=== PATIENT | male | born 1980 | race Caucasian/White ===

== ENCOUNTER → 2018-08-18 13:57 | Outpatient (CLI) | payer OTHER, SELFPAY ==
[2018-08-18 14:07] LABS: Basophils % 0.6 % (0.1-2.0); Eosinophils # 0.2 K/mm3 (0.0-0.4); Eosinophils % 3.9 % (0.1-12.0); Hematocrit 43.1 % (42.0-52.0); Hemoglobin 14.6 g/dL (14.1-18.0); Lymphocytes # 1.7 K/mm3 (0.7-4.5); Lymphocytes % 27.6 % (10-50); Mean Corpuscular Hemoglobin 30.8 pg (27.0-31.2); Mean Corpuscular Volume 90.7 fl (80-94); Mean Platelet Volume 7.9 fl (7.4-10.4); Monocytes # 0.3 K/mm3 (0.1-1.0); Monocytes % 5.6 % (1.7-9.3); Neutrophils # 3.9 K/mm3 (1.8-7.8); Neutrophils % 62.3 % (37.0-80.0); Platelet Count 232 K/mm3 (142-424); Red Blood Count 4.75 M/mm3 (4.60-6.20); Red Cell Distribution Width 13.3 % (11.5-17.5); White Blood Count 6.2 K/mm3 (4.8-10.8)
[2018-08-18 16:32] LABS: Alanine Aminotransferase 29 U/L (12-78); Albumin/Globulin Ratio 1.4 (1.1-1.8); Alkaline Phosphatase 73 U/L (46-116); Anion Gap 11.4 mEq/L (5-15); Aspartate Amino Transferase 8 U/L (15-37); Bilirubin,Total 0.4 mg/dL (0.2-1.0); Blood Urea Nitrogen 10 mg/dL (7-18); Calcium 8.7 mg/dL (8.5-10.1); Carbon Dioxide 29 mmol/L (21.0-32.0); Chloride 102 mmol/L (98-107); Chol/HDL Ratio 2.9 (1-3.5); Cholesterol 164 mg/dL (140-200); Creatinine,Serum 0.77 mg/dL (0.70-1.30); Estimated Glomerular Filt Rate 113 ml/min (>60); GFR (African American) 137 ML/MIN (>60); Globulin 2.8 gm/dl (1.3-3.2); Glucose 96 mg/dL (74-106); HDL Cholesterol 56 mg/dL (27-67); LDL Cholesterol 100 mg/dL (0-130); Potassium 4.4 mmoL/L (3.5-5.1); Sodium 138 mmol/L (136-145); T4 (Thyroxine) 7.1 ug/dl (4.7-13.3); Total Protein,Serum 6.8 gm/dL (6.4-8.2); Triglycerides 42 mg/dL (30-200); VLDL Cholesterol 8 mg/dL (0-40)
[2018-08-20 13:19] LABS: Vitamin B12 344 pg/mL (232-1245); Vitamin D 25 Hydroxy 23.8 ng/mL (30.0-100.0)
== END ==
PROVIDERS: Visit Provider Physician Assistant
DX: R53.83 Other fatigue (principal); Z79.899 Other long term (current) drug therapy
CPT/HCPCS: 80053; 80061; 82607; 82652; 84436; 85025

== ENCOUNTER → 2018-09-07 20:13 | Outpatient (CLI) | payer OTHER, SELFPAY | PROVIDERS: PCP Physician Assistant; Visit Provider Physician Assistant | DX: G47.33 Obstructive sleep apnea (adult) (pediatric) (principal); G47.30 Sleep apnea, unspecified; I10 Essential (primary) hypertension; R40.0 Somnolence | CPT/HCPCS: 95810 ==

== ENCOUNTER 2020-01-04 18:34 | Observation (INO) | payer MEDICAID, SELFPAY ==
--- NOTE | 2020-01-04 18:29 | ECG_ITS ---
APPROVED REPORT Exam: Resting ECG HR:96 bpm ECG Measurements Heart Rate 96 AXES AZ 152 P 64 QRSd 86 QRS 55 QT 342 T 33 QTc 432 Conclusion Normal sinus rhythm Normal ECG Electronically signed by : Sonny Conet, 01/06/2020 13:51:06
[2020-01-04 18:35] VITALS: BP 142/98; PULSE 96; RESP 16; TEMP 36.7; O2SAT 97; BMI 31.6
[2020-01-04 18:36] VITALS: BMI 27.2
--- NOTE | 2020-01-04 18:36 | XR_ITS ---
PROCEDURE: XR CHEST 2V CLINICAL HISTORY: chest pain COMPARISON: No exams were available for comparison FINDINGS: The cardiomediastinal silhouette and pulmonary vascularity are within normal limits. The lungs are clear without infiltrates, suspicious nodules, or pleural effusions. No acute bony abnormalities. IMPRESSION: No acute findings. Dictated by: Vick Wolfe MD 01/05/2020 06:04 Vick Wolfe MD in [place] 01/05/2020 06:04
--- NOTE | 2020-01-04 18:36 | HMH.EDGENADL ---
ED Disposition Clinical Impression: Angina pectoris Disposition: Admitted as Observation Condition on Discharge: Good - Critical Care Critical Care Time: No Attestation: On , the high probability of a clinically significant, sudden or life threatening deterioration of the following system(s) required my full and direct attention, intervention and personal management. The time I documented below is in addition to time spent performing reported procedures but includes the following listed in this critical care notation. Medical Decision Making - Medical Records Medical records reviewed: Yes: I reviewed the patient's medical records. - Todd Inquiry Pt receiving controlled substance: No Vital Signs: 01/04/20 18:35 01/04/20 18:50 Temperature 98.0 F Temperature Source Oral Pulse Rate [Right Radial] 96 H 94 H Respiratory Rate 16 Blood Pressure [Right Arm] 142/98 H 148/101 H Blood Pressure Mean [Right Arm] 112 116 Blood Pressure Source [Right Arm] Automatic Cuff Automatic Cuff Blood Pressure Position [Right Arm] Sitting Sitting 02 Sat by Pulse Oximetry 97 99 Oxygen Delivery Method Room Air Room Air - Lab Data Lab results reviewed: Yes: I reviewed the patient's lab results. Lab Results 01/04/20 18:40: WBC 8.1, RBC 4.96, Hgb 15.7, Hct 45.9, MCV 92.6, MCH 31.6 H, MCHC 34.1, RDW 12.3, Plt Count 229, MPV 7.3 L, Neut % (Auto) 55.7, Lymph % (Auto) 30.3, [place] % (Auto) 6.8, Eos % (Auto) 6.2, Baso % (Auto) 1.0, Neut # (Auto) 4.5, Lymph # (Auto) 2.4, [place] # (Auto) 0.6, Eos # (Auto) 0.5 H, Baso # (Auto) 0.1 01/04/20 18:40: Sodium 139, Potassium 3.4 L, Chloride 99, Carbon Dioxide 30, Anion Gap 13.4, BUN 16, Creatinine 1.00, Estimated Creat Clear 121, Estimated GFR 83, Est GFR ( Amer) 101, Glucose 127 H, Calcium 9.4, Troponin I < 0.01 01/04/20 18:40: SARS-CoV-2 IgG Ab (Rapid) Negative, SARS-CoV-2 IgM Ab (Rapid) Negative 01/04/20 18:40: Total Bilirubin 0.3, Direct Bilirubin 0.0, Conjugated Bilirubin 0.0, Indirect Bilirubin 0.3, Unconjugated Bilirubin 0.3, AST 25, ALT 16, Alkaline Phosphatase 74, Total Protein 7.3, Albumin 4.4 Result diagrams: 01/04/20 18:40 01/04/20 18:40 Orders (Tests/Meds): ED MEDICATIONS Discontinued Medications Generic Name Dose Route Start Last Admin Trade Name Freq PRN Reason Stop Dose Admin Aspirin 324 mg 01/04/20 18:36 01/04/20 18:47 Aspirin 81mg Chewable Tablet PO 01/04/20 18:37 324 mg ONCE ONE Administration Clopidogrel Bisulfate 300 mg 01/04/20 19:26 01/04/20 19:38 Clopidogrel 300mg Tablet PO 01/04/20 19:27 300 mg ONCE ONE Administration Metoprolol Tartrate 50 mg 01/04/20 19:26 01/04/20 19:39 Metoprolol Tartrate 50mg Tablet PO 02/03/20 19:25 Not Given BID [facility] Category Date Time Status XR chest 2V Stat Exams 01/04/20 18:36 Taken Troponin I Q3H Lab 01/04/20 21:45 Ordered Troponin I Q3H Lab 01/05/20 00:45 Ordered - Radiology Data #1 Image(s): Chest Image Reviewed: Yes I reviewed the patient's radiology image Preliminary Findings: Normal/NAD - ECG Data Tracing #1 EKG interpreted by Henok Head MD: Rhythm: sinus Rate: 96 Bard: normal Ectopy: none Conduction: normal ST Segment Changes: none T Wave Changes: none Q Waves: none No evidence of acute ischemia or injury Normal electrocardiogram - Physician Consults Physician Consulted: Mikey Time: 19:23 Reason -: Cardiology Eval/Care Comment/Response: Recommends admission, Plavix 300 mg, beta-carlo (patient is already on Metoprolol - took this AM), plan on cardiac cath tomorrow Additional Consult: Timothy Time: 20:01 Reason -: Admission - KIRAN Score for Non-Stemi Age of Patient: 30-39 years old Heart Rate: 90-109 bpm Systolic Blood Pressure: 140-159 mmHg Serum Creatinine: 0.80-1.19 mg/dl CHF Killip Class: I-No CHF Other Risk Factors: None Non-Stemi Risk Score: 54 Medical Decision Narrative: Heart Pathway Score is: 4 High Risk Ge
[2020-01-04 18:50] VITALS: BP 148/101; PULSE 94; O2SAT 99
[2020-01-04 18:50] LABS: Basophils # 0.1 K/mm3 (0-0.2); Eosinophils # 0.5 K/mm3 (0.0-0.4); Eosinophils % 6.2 % (0.1-12.0); Hematocrit 45.9 % (42.0-52.0); Hemoglobin 15.7 g/dL (14.1-18.0); Lymphocytes # 2.4 K/mm3 (0.7-4.5); Lymphocytes % 30.3 % (10-50); Mean Corpuscular HGB Conc 34.1 g/dL (31.8-35.4); Mean Corpuscular Hemoglobin 31.6 pg (27.0-31.2); Mean Corpuscular Volume 92.6 fl (80-94); Mean Platelet Volume 7.3 fl (7.4-10.4); Monocytes # 0.6 K/mm3 (0.1-1.0); Monocytes % 6.8 % (1.7-9.3); Neutrophils # 4.5 K/mm3 (1.8-7.8); Neutrophils % 55.7 % (37.0-80.0); Platelet Count 229 K/mm3 (142-424); Red Blood Count 4.96 M/mm3 (4.60-6.20); Red Cell Distribution Width 12.3 % (11.5-17.5); White Blood Count 8.1 K/mm3 (4.8-10.8)
[2020-01-04 18:58] LABS: Chloride 99 mmol/L (98-107); Potassium 3.4 mmoL/L (3.5-5.1); Sodium 139 mmol/L (136-145)
[2020-01-04 19:00] LABS: Alanine Aminotransferase 16 U/L (12-78); Albumin Level 4.4 g/dl (3.5-5.0); Alkaline Phosphatase 74 U/L (38-126); Aspartate Amino Transferase 25 U/L (17-59); Bilirubin,Indirect 0.3 mg/dL (0.0-0.9); Bilirubin,Total 0.3 mg/dl (0.2-1.3); Bilirubin,Unconjugated 0.3 mg/dL (0.0-1.1); Blood Urea Nitrogen 16 mg/dl (9-20); Creatinine Clearance Estimated 121 mL/min (50-200); Estimated Glomerular Filt Rate 83 ml/min (>60); GFR (African American) 101 ML/MIN (>60); Total Protein,Serum 7.3 g/dl (6.3-8.2)
[2020-01-04 19:01] LABS: Anion Gap 13.4 mEq/L (5-15); Calcium 9.4 mg/dl (8.4-10.2); Carbon Dioxide 30 mmol/L (22.0-30.0); Glucose 127 mg/dl (74-100)
[2020-01-04 19:15] LABS: Troponin I < 0.01 ng/ml (0.00-0.034)
[2020-01-04 19:16] LABS: Coronavirus 19 IgG Antibody Negative (Negative); Coronavirus 19 IgM Antibody Negative (Negative)
--- NOTE | 2020-01-04 19:30 | PC.NURSE ---
speaking with Dr. Jensen
--- NOTE | 2020-01-04 19:47 | PC.NURSE ---
Patient assigned to 203
--- NOTE | 2020-01-04 20:22 | HMH.HP ---
*Admission Date: 01/04/20 *Chief complaint: chest pain *History of present illness: this pt presented to the ed with chest pain The patient complains of episodes of chest pain for 1 week. He describes it as bad heartburn . He says that he gets a burning sensation in his upper chest up into his neck and across his lower chest. It goes through to his back. It is associated with nausea, shortness of breath, and clamminess. It lasts anywhere from minutes to 1/2-hour. No exacerbating or alleviating factors. He says he eats Tums for it but it will only relieve it for a few minutes. Tonight his chest just feels a little bit tight but he says that his leg started tingling tonight and therefore he decided it was time to come in to get checked. He has felt extremely fatigued and tired for the past week. 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 He smokes e-cigarettes. He has hypertension. He has a family history of heart disease. He said both of his parents had heart attacks, his mother in her 50s of a heart attack, father had a heart attack in his 60s. Both grandparents had strokes. He does not have hyperlipidemia or diabetes. pt was admitted for eval and card consult [facility] History I have reviewed the patient's past medical history: Yes Medical History: Reports:: Hypertension Denies:: Diabetes Mellitus Type 1, Diabetes Mellitus Type 2 *Have you ever received a pneumonia vaccine?: No *Have you received a flu vaccine this season?: No Other Medical History: Reports: Sinus Problems Laterality Cases: Bilateral: Tonsillectomy Other Surgeries: Yes: Other Amputation: No Fractures: No - *Social History Smoking Status: Current every day smoker Tobacco Type: e-cigarettes # Packs/Day (cigarettes): 0 Alcohol Intake: never Alcohol Intake Frequency:: a few times a month Substance Use Type: denies use *Occupational Status:: other *Travel in the last 8 weeks: None Family Hx:: No significant family history Review of Systems - Review of Systems Review of systems:: pertinent systems reviewed and negative unless documented below - Constitutional Denies fever(s) - Eyes Denies blurry vision - ENT Denies dry mouth - *Cardiovascular Reports chest pain, Denies shortness of breath - *Respiratory Denies cough, Denies shortness of breath - *Gastrointestinal Denies abdominal pain - *Genitourinary Denies blood in urine - *Musculoskeletal Denies joint pain, Denies neck pain - Integumentary/Breasts Denies rash - *Neurologic Denies localized weakness, Denies tingling/numbness/burning sensations, Denies seizure-like activity - Psychiatric Denies confusion Meds Home Medications Medication Instructions Recorded Confirmed Type Cetirizine HCl 10 mg PO DAILY 01/04/20 01/04/20 History Cholecalciferol (Vitamin D3) 25 mcg PO DAILY 01/04/20 01/04/20 History [Vitamin D3 1,000 Unit Cap] Fluticasone Propionate 2 spray INTRANASAL DAILY 01/04/20 01/04/20 History Metoprolol Succinate [Kapspargo 25 mg PO DAILY 01/04/20 01/04/20 History Sprinkle] hydroCHLOROthiazide [HCTZ 25mg 25 mg PO DAILY 01/04/20 01/04/20 History tab] Allergies Allergy/AdvReac Type Severity Reaction Status Date / Time No Known Allergies Allergy Verified 09/01/19 13:40 Exam Vital signs and Labs for Last 24 Hours: Temp Pulse Resp BP Pulse Ox 98.0 F 94 H 16 148/101 H 99 01/04/20 18:35 01/04/20 18:50 01/04/20 18:35 01/04/20 18:50 01/04/20 18:50 Laboratory Results - last 24 hr 01/04/20 18:40: WBC 8.1, RBC 4.96, Hgb 15.7, Hct 45.9, MCV 92.6, MCH 31.6 H, MCHC 34.1, RDW 12.3, Plt Count 229, MPV 7.3 L, Neut % (Auto) 55.7, Lymph % (Auto) 30.3, [place] % (Auto) 6.8, Eos % (Auto) 6.2, Baso % (Auto) 1.0, Neut # (Auto) 4.5, Lymph # (Auto) 2.4, [place] # (Auto) 0.6, Eos # (Auto) 0.5 H, Baso # (Auto) 0.1 01/04/20 18:40: Sodium 139, Potassium 3.4 L, Chloride 99, Carbon Dioxide 30, Anion Gap
[2020-01-04 20:37] VITALS: BP 152/63; PULSE 109; RESP 24; TEMP 36.6; O2SAT 97
[2020-01-04 20:54] VITALS: BP 134/42; PULSE 95; RESP 14; TEMP 36.6; O2SAT 97
--- NOTE | 2020-01-04 21:02 | PC.NURSE ---
patient up to floor via wheelchair.
[2020-01-04 21:15] VITALS: PULSE 90
[2020-01-04 21:46] VITALS: BP 155/92; PULSE 97; RESP 20; TEMP 37.1; O2SAT 97; BMI 31.6
[2020-01-04 21:56] LABS: Troponin I < 0.01 ng/ml (0.00-0.034)
[2020-01-05] VITALS (22 sets, daily range): BP systolic 123–167; BP diastolic 75–100; PULSE 62–91; RESP 16–22; TEMP 36.6–36.8; O2SAT 96–100
--- NOTE | 2020-01-05 | IR_ITS ---
APPROVED REPORT Patient Location: Inpatient PROCEDURES Left heart catheterization Left ventriculogram Selective coronary angiogram INDICATION Unstable angina, Strong family history of coronary disease Informed consent was obtained prior to the procedure. COMPLICATIONS None Estimated Blood Loss: less than 10ml TECHNIQUE One percent lidocaine used to anesthetize the right anterior aspect of the wrist. The right radial artery was accessed via the Seldinger technique. A 6 [place] sheath was placed in the right radial artery. 2.5 mg of verapamil, 800 mcg of nitroglycerin, 1mg Lidocaine and 5000 U Heparin were given through the arterial sheath. The trap catheter was also used to perform left heart catheterization, left ventriculogram and selective coronary angiogram. At the end of the procedure the sheath was removed good hemostasis was achieved using Traclet band, patient was transferred to the postop holding area in stable condition. ANGIOGRAPHIC RESULTS The left main artery Normal The left anterior descending artery Normal The circumflex artery Normal The right coronary artery Dominant normal The BANKS ventriculogram reveals Normal 65% The left ventricular end-diastolic pressure 30 mmHg IMPRESSION Normal coronary arteries Normal ejection fraction Moderate to severely elevated LVEDP consistent with diastolic dysfunction PLAN 1. Treatment of moderate to severe diastolic dysfunction which is the likely etiology for patient's symptoms 2. I still recommend exploring other etiologies for patient's symptoms Electronically signed by : Miguel Jensen, 01/05/2020 12:53:04
[2020-01-05 01:19] LABS: Troponin I < 0.01 ng/ml (0.00-0.034)
--- NOTE | 2020-01-05 03:56 | PC.NURSE ---
Pt is alert and oriented x4. Pt rested well with eyes closed this shift. No c/o chest pain thus far. PERRLA. Bilateral hand melangeur operator noted equal and strong. Cap refill < 3 seconds. Bilateral lungs noted clear t/o upon auscultation. Tolerated RA well with no c/o SOA. Pt states he has sleep apnea but did not bring his CPAP machine with him tonight. states if he has to stay another night she will bring it in for him. Abdomen noted soft and non-tender upon palpation. No c/o abd pain t/o shift. Denies N/V. Amb independently in room. No edema noted. Refused TEDS. VSS. Remains safe. Call light within reach. Will continue to monitor.
--- NOTE | 2020-01-05 07:00 | CA_ITS ---
APPROVED REPORT EXAM: Comprehensive 2D, Doppler, and color-flow Echocardiogram Blow Up Operator: Bailey Burris RDCS Ht: 6 ft 1 in Wt: 250lbs BSA: 2.37 BP: 123/81 mmHg Indications: CP,DIETER,SMOKER,HTN, 2D Dimensions LVOT 2.07 cm (M/F) 1.5-2.5 M-Mode Dimensions RVDd 2.91 cm (0.9-2.6) LVDd 5.43 cm (3.5-5.7) LVDs 4.22 cm (3.5-5.7) IVSd 0.72 cm (0.6-1.1) PWd 0.81 cm (0.6-1.1) EF (Teich) 44.40% FS 22.30% EDV (Teich) 143.10 mL ESV (Teich) 79.50 mL LV Diastology E/A Ratio 1.31 Mitral Valve MV A Velocity 49.00 (40-130 cm/s) Left Ventricle Left atrium is mildly enlarged, left ventricle is normal size, there is no concentric left ventricular hypertrophy, visually estimated ejection fraction 55% with no regional wall motion abnormality, diastolic parameters are within normal range. Right Ventricle Right atrium and right ventricle are mildly enlarged with normal contractility. Aortic Valve Aortic valve is grossly normal, there is no aortic stenosis or aortic insufficiency. Mitral Valve Mitral valve is grossly normal, there is mild mitral regurgitation. Tricuspid Valve Tricuspid valve is grossly normal, there is mild tricuspid regurgitation, tricuspid regurgitation jet velocity is inadequate for calculation of the right ventricular systolic pressure. Pulmonic Valve Pulmonic valve is poorly visualized. Great Vessels Aortic root is normal size. Pericardium No significant pericardial effusion noted. Conclusion 1. Mild biatrial enlargement, normal left ventricular size, visually estimated ejection fraction 55% with no regional wall motion abnormality, diastolic parameters are within normal range. 2. Mildly enlarged right ventricle with normal contractility. 3. Mild mitral and tricuspid regurgitation. 4. No significant pericardial effusion noted. Electronically signed by : Julio Polanco, 01/05/2020 15:11:05
--- NOTE | 2020-01-05 07:31 | HMH.PHAVTE ---
[facility] VTE Monitoring - Patient Demographics Admission date: 01/05/20 Report Date: 01/05/20 Time: 07:31 Allergies/Adverse Reactions: Patient Allergies No Known Allergies Allergy (Verified 09/01/19 13:40) Height: 1.85 m Weight: 108.862 kg Patient Problems: Current Active Problems Angina pectoris (Acute) Chest pain (Acute) Obesity (BMI 30.0-34.9) (Acute) DIETER (obstructive sleep apnea) (Chronic) Hypertension (Chronic) - VTE Risk Labs: VTE Related Lab Results Hgb 15.7 g/dL (14.1-18.0) 01/04/20 18:40 Hct 45.9 % (42.0-52.0) 01/04/20 18:40 Plt Count 229 K/mm3 (142-424) 01/04/20 18:40 BUN 16 mg/dl (9-20) 01/04/20 18:40 Creatinine 1.00 mg/dl (0.66-1.25) 01/04/20 18:40 Estimated Creat Clear 121 mL/min (50-200) 01/04/20 18:40 Was VTE Risk Assessment Performed: Yes VTE Score: 3 VTE Risk Level: Low Risk Clinical Trial Participant: No - Prophylaxis VTE Prophylaxis Ordered?: Yes Types of VTE Prophylaxis: TEDS Knee High
--- NOTE | 2020-01-05 07:36 | HMH.PHAINT ---
CONFIRMED HOME MEDICATION LIST WITH HOME PHARMACY
--- NOTE | 2020-01-05 07:53 | HMH.CNCARD ---
History of Present Illness Consult date: 01/05/20 Requesting physician: Frederick Aguirre Consult reason: chest pain Chief complaint: chest pain, SOA Additional Medical History:: 1. Hypertension 2. History of tobacco use of 2 packs/day for 14 years, currently using vapor cigarettes 3. History of Parham's palsy with right side affected 4. Family history of coronary artery disease with his mother dying at 54 with a heart attack in his father in his early 60s 5. History of GERD 6. History of DIETRE History of present illness: 39-year-old white male with hypertension and history of tobacco use and strong family history of coronary artery disease presented to the emergency department for increasing episodes of chest discomfort with associated shortness of breath. Symptoms have become worse over the last month with a severe episode rated 10 out of 10 last with associated palpitations and shortness of breath and diaphoresis. Symptoms sometimes occur after eating but not consistently. Since the episode last week he has been fatigue and notices increasing exertional shortness of breath. Symptoms may last from 2 to 30 minutes with mild relief with antacids but not resolution. Patient was seen in the ER last evening due to increasing episodes of chest discomfort and admitted for further evaluation. He was treated with aspirin and Plavix in the ER. Troponins are noted to be normal x3 and EKG is sinus rhythm with no acute ST segment changes. Patient did have a remote stress test about 5 years ago that was reportedly normal. Cardiology consulted for evaluation and recommendations. [facility] History Medical History: Reports:: Hypertension Denies:: Cancer, Diabetes Mellitus Type 1, Diabetes Mellitus Type 2, MRSA *Have you ever received a pneumonia vaccine?: Yes *Have you received a flu vaccine this season?: No Other Medical History: Reports: Sinus Problems Laterality Cases: Bilateral: Tonsillectomy Other Surgeries: Yes: Other Amputation: No Fractures: No - *Social History Last grade of school completed: High school graduate Smoking Status: Current every day smoker Tobacco Type: e-cigarettes # Packs/Day (cigarettes): 0 Alcohol Intake: current Alcohol Intake Frequency:: a few times a month Substance Use Type: denies use *Occupational Status:: employed Housing: house Household Members: spouse, children *Travel in the last 8 weeks: None Family Hx:: Heart Attack, Hyperlipidemia, Hypertension, Stroke, Alcoholism Meds Home Medications Medication Instructions Recorded Confirmed Type Cetirizine HCl 10 mg PO DAILY 01/04/20 01/04/20 History Fluticasone Propionate 2 spray INTRANASAL DAILY 01/04/20 01/04/20 History Metoprolol Succinate [Kapspargo 25 mg PO DAILY 01/04/20 01/04/20 History Sprinkle] hydroCHLOROthiazide [HCTZ 25mg 25 mg PO DAILY 01/04/20 01/04/20 History tab] Cholecalciferol (Vitamin D3) 50,000 unit PO DAILY 01/05/20 01/05/20 History [Vitamin D3 50,000 unit Cap] Allergies Allergy/AdvReac Type Severity Reaction Status Date / Time No Known Allergies Allergy Verified 09/01/19 13:40 Exam Vital signs and Labs for Last 24 Hours: Temp Pulse Resp BP Pulse Ox 97.9 F 76 18 123/81 98 01/05/20 04:21 01/05/20 04:21 01/05/20 04:21 01/05/20 04:21 01/05/20 04:21 Laboratory Results - last 24 hr 01/04/20 18:40: WBC 8.1, RBC 4.96, Hgb 15.7, Hct 45.9, MCV 92.6, MCH 31.6 H, MCHC 34.1, RDW 12.3, Plt Count 229, MPV 7.3 L, Neut % (Auto) 55.7, Lymph % (Auto) 30.3, [place] % (Auto) 6.8, Eos % (Auto) 6.2, Baso % (Auto) 1.0, Neut # (Auto) 4.5, Lymph # (Auto) 2.4, [place] # (Auto) 0.6, Eos # (Auto) 0.5 H, Baso # (Auto) 0.1 01/04/20 18:40: Sodium 139, Potassium 3.4 L, Chloride 99, Carbon Dioxide 30, Anion Gap 13.4, BUN 16, Creatinine 1.00, Estimated Creat Clear 121, Estimated GFR 83, Est GFR ( Amer) 101, Glucose 127 H, Calcium 9.4, Troponin I < 0.01 01/04/20 18:40: SARS-CoV-2 IgG Ab (Rapid) Negative, SARS-CoV-2 I
--- NOTE | 2020-01-05 09:48 | US_ITS ---
PROCEDURE: US GALLBLADDER CLINICAL INDICATION: ruq pain COMPARISON: No exams were available for comparison FINDINGS: Pancreas: Unremarkable/Not well seen Liver: Unremarkable. There is appropriate direction of blood flow within a non dilated portal vein. Right kidney: Unremarkable appearing. No hydronephrosis. Gallbladder: No stones are evident. There is no gallbladder wall thickening. Common duct is normal in diameter. IMPRESSION: Negative gallbladder ultrasound. No stones evident. Dictated by: Vick Wolfe MD 01/05/2020 11:24 Vick Wolfe MD in [place] 01/05/2020 11:24
--- NOTE | 2020-01-05 09:50 | P.PN_ITS ---
Internal Medicine - PN: Subj *Date: 01/05/20 *Time: 08:10 Interval history: pt states pain rt ruq, though chest and back Exam Vital signs and Labs for Last 24 Hours: Temp Pulse Resp BP Pulse Ox 98.2 F 85 19 151/98 H 100 01/05/20 08:00 01/05/20 08:00 01/05/20 08:00 01/05/20 08:00 01/05/20 08:00 Laboratory Results - last 24 hr 01/04/20 18:40: WBC 8.1, RBC 4.96, Hgb 15.7, Hct 45.9, MCV 92.6, MCH 31.6 H, MCHC 34.1, RDW 12.3, Plt Count 229, MPV 7.3 L, Neut % (Auto) 55.7, Lymph % (Auto) 30.3, [place] % (Auto) 6.8, Eos % (Auto) 6.2, Baso % (Auto) 1.0, Neut # (Auto) 4.5, Lymph # (Auto) 2.4, Isabella # (Auto) 0.6, Eos # (Auto) 0.5 H, Baso # (Auto) 0.1 01/04/20 18:40: Sodium 139, Potassium 3.4 L, Chloride 99, Carbon Dioxide 30, Anion Gap 13.4, BUN 16, Creatinine 1.00, Estimated Creat Clear 121, Estimated GFR 83, Est GFR ( Amer) 101, Glucose 127 H, Calcium 9.4, Troponin I < 0.01 01/04/20 18:40: SARS-CoV-2 IgG Ab (Rapid) Negative, SARS-CoV-2 IgM Ab (Rapid) Negative 01/04/20 18:40: Total Bilirubin 0.3, Direct Bilirubin 0.0, Conjugated Bilirubin 0.0, Indirect Bilirubin 0.3, Unconjugated Bilirubin 0.3, AST 25, ALT 16, Alkaline Phosphatase 74, Total Protein 7.3, Albumin 4.4 01/04/20 21:25: Troponin I < 0.01 01/05/20 00:25: Troponin I < 0.01 I & O for Last 24 hours: Intake & Output 01/02/20 01/03/20 01/04/20 01/05/20 11:59 11:59 11:59 11:59 Intake Total Output Total 500 / 500 Balance -490 / -490 Weight 240 lb - Constitutional no acute distress - *Routine HEENT Exam Head: Present: normocephalic Eye: Present: PERRL ENT: Present: mucous membranes moist Comments: rt side of face slight drop(bells [place]alse[place]) - *Routine Neck Exam Present: supple - *Routine Respiratory Exam Present: CTA bilaterally - *Routine Cardiovascular Exam Present: RRR - *Routine Abdominal Exam Present: soft, normoactive bowel sounds. Absent: tenderness - *Routine Extremities Exam Present: normal capillary refill. Absent: cyanosis, clubbing, edema - *Routine Skin Exam Present: warm. Absent: rash - *Routine Neurological Exam Present: alert, oriented X3 - Routine Psychiatric Exam Present: normal affect Assessment and Plan (1) Chest pain Status: Acute Qualifiers: Chest pain type: precordial pain Qualified Code(s): R07.2 - Precordial pain Category: Medical Code(s): R07.9 - Chest pain, unspecified (2) Obesity (BMI 30.0-34.9) Status: Acute Category: Medical Code(s): E66.9 - Obesity, unspecified (3) Hypertension Status: Chronic Qualifiers: Hypertension type: essential hypertension Qualified Code(s): I10 - Essential (primary) hypertension Category: Medical Code(s): I10 - Essential (primary) hypertension (4) DIETER (obstructive sleep apnea) Status: Chronic Category: Medical Code(s): G47.33 - Obstructive sleep apnea (adult) (pediatric) (5) Accelerating angina Status: Acute Category: Medical Code(s): I20.0 - Unstable angina (6) Ex-smoker for more than 1 year Status: Acute Category: Social Hx Code(s): Z87.891 - Personal history of nicotine dependence - Assessment and plan all Dx Assessment and Plan for all problems:: rounded with dr harris all orders per dr harris gallbladder us cath protonix
--- NOTE | 2020-01-05 17:38 | CT_ITS ---
PROCEDURE: CT ABDOMEN PELVIS WO CON CLINICAL INDICATION: abd pain EPIGASTRIC/RUQ ABD PAIN, PT STATES IT FEELS LIKE HE HAS HEARTBURN THAT WONT GO AWAY. COMPARISON: CT CT ABDOMEN PELVIS W CON from 03/10/2019 US US GALLBLADDER from 01/05/2020 TECHNIQUE: Axial images obtained with sagittal and coronal reformats. All CT scans at the facility use one or more dose reduction, viz: automated exposure control, ma/kV adjustment per patient size (including targeted exams where dose is matched to indication, i.e. head), or iterative reconstruction technique. FINDINGS: LOWER THORAX: There are mild atelectatic changes in the lung bases. ABDOMEN & PELVIS: The liver has an unremarkable appearance. The spleen, gallbladder, pancreas, and adrenal glands have an unremarkable appearance. There is some increased density within the renal collecting system on both sides. This is likely residual from recent heart catheterization. No hydronephrosis renal mass or obstructive uropathy evident. No intestinal obstruction or free air. Unremarkable appearing appendix. There is a tiny umbilical hernia containing fat. Urinary bladder is filled with contrast. No pelvic mass or abnormal fluid collection apparent. No acute bony findings. Incidental note made of mild gynecomastia. IMPRESSION: No acute abdominal or pelvic findings. Mild atelectatic changes in the lung bases. Dictated by: iVck Wolfe MD 01/06/2020 10:16 Vick Wolfe MD in [place] 01/06/2020 10:16
[2020-01-05 18:10] LABS: Amylase 54 U/L (30-110); Lipase 54 U/L (23-300)
--- NOTE | 2020-01-05 19:00 | PC.NURSE ---
A&OX4. PT HAS TOLERATED ROOM AIR WELL THROUGHOUT SHIFT. RESPIRATIONS REGULAR AND UNLABORED. LUNG SOUNDS BILATERALLY CLEAR. HAND FACILITIES OPERATIONS TECHNICIAN EQUAL. +2 PULSES NOTED THROUGHOUT. ACTIVE BOWEL SOUNDS HEARD IN ALL 4 QUADRANTS. SOFT AND NONTENDER ABDOMEN. NO BM THIS SHIFT. VOIDS INDEPENDENTLY PER BATHROOM. NO PAIN REPORTED THIS SHIFT. NO NAUSEA REPORTED. PT RECEIVED HEART CATH AND TOLERATED WELL. CATH SITE NOTED TO R FEMORAL. DRESSING CDI. +2 PULSES NOTED. VSS. PT HAS BEEN DOING GREAT AND IS CURRENTLY UP WALKING AROUND IN THE ROOM. BED IN LOWEST POSITION. CALL LIGHT WITHIN REACH. WILL CONTINUE TO MONITOR.
--- NOTE | 2020-01-05 20:50 | HMH.DCSUM ---
General - General Admission date:: 01/04/20 Discharge date: 01/05/20 HPI HPI: this pt presented to the ed with chest pain The patient complains of episodes of chest pain for 1 week. He describes it as bad heartburn . He says that he gets a burning sensation in his upper chest up into his neck and across his lower chest. It goes through to his back. It is associated with nausea, shortness of breath, and clamminess. It lasts anywhere from minutes to 1/2-hour. No exacerbating or alleviating factors. He says he eats Tums for it but it will only relieve it for a few minutes. Tonight his chest just feels a little bit tight but he says that his leg started tingling tonight and therefore he decided it was time to come in to get checked. He has felt extremely fatigued and tired for the past week. 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 He smokes e-cigarettes. He has hypertension. He has a family history of heart disease. He said both of his parents had heart attacks, his mother in her 50s of a heart attack, father had a heart attack in his 60s. Both grandparents had strokes. He does not have hyperlipidemia or diabetes. pt was admitted for eval and card consult Hospital Course Hospital Course: presented with chest pain and several risk factors taken to [facility] for [facility] findings are as follows IMPRESSION Normal coronary arteries Normal ejection fraction Moderate to severely elevated LVEDP consistent with diastolic dysfunction Had complaints of abdominal pain Workup included gallbladder ultrasound and CT abdomen CT showed no acute process. No hematoma/pseudoaneurysm US was unremarkable Objective Vital signs: Temp Pulse Resp BP Pulse Ox 98.1 F 84 19 167/100 H 99 01/05/20 18:30 01/05/20 18:30 01/05/20 18:30 01/05/20 18:30 01/05/20 18:30 no acute distress - *Routine HEENT Exam Head: Present: normocephalic Eye: Present: EOMI, PERRL ENT: Present: mucous membranes moist - *Routine Neck Exam Present: supple - *Routine Respiratory Exam Present: CTA bilaterally - *Routine Cardiovascular Exam Present: RRR - *Routine Abdominal Exam Present: soft. Absent: distended, rebound, guarding, firm, wound - *Routine Extremities Exam Absent: cyanosis, clubbing, edema - *Routine Skin Exam Present: warm. Absent: jaundice, rash Results Labs on day of discharge: Labs from last 24 hours 01/05/20 01/05/20 01/04/20 17:55 00:25 21:25 Troponin I < 0.01 < 0.01 Amylase 54 Lipase 54 DS: Diagnosis - Discharge Diagnosis (1) Chest pain Status: Acute (2) Obesity (BMI 30.0-34.9) Status: Chronic (3) Hypertension Status: Chronic (4) DIETER (obstructive sleep apnea) Status: Chronic (5) Accelerating angina Status: Resolved (6) Ex-smoker for more than 1 year Status: Chronic (7) Abdominal pain Status: Acute Discharge Plan - Patient Discharge Instructions ACTIVITY: Ambulate as tolerated DIET: continue same diet Patient Instructions: DI for Angina - Follow up Plan Disposition: Home, Self-Custodial Medications: Home Medications Medication Instructions Recorded Confirmed Type Cetirizine HCl 10 mg PO DAILY 01/04/20 01/04/20 History Fluticasone Propionate 2 spray INTRANASAL DAILY 01/04/20 01/04/20 History hydroCHLOROthiazide [HCTZ 25mg 25 mg PO DAILY 01/04/20 01/04/20 History tab] Cholecalciferol (Vitamin D3) 50,000 unit PO DAILY 01/05/20 01/05/20 History [Vitamin D3 50,000 unit Cap] Furosemide [Lasix 40mg tab] 40 mg PO DAILY #90 tab 01/05/20 Rx Metoprolol Succinate [Kapspargo 25 mg PO DAILY #90 cap 01/05/20 Rx Sprinkle] Metoprolol Succinate [Toprol XL 25 mg PO DAILY #90 tab.er.24h 01/05/20 Rx 25mg tablet] Spironolactone [Aldactone 25mg 25 mg PO DAILY #90 tab 01/05/20 Rx Tab] Prescriptions/Medication Reconciliation: New
--- NOTE | 2020-01-05 22:26 | PC.NURSE ---
patient discharged and off floor @ 22:17
== END 2020-01-05 22:17 | disposition home or self-care (01) ==
LOC: ER 19:32 → 2ND 20:02
PROVIDERS: Internal Medicine; Nurse Practitioner Family; Admitting Provider Emergency Medicine; Emergency Provider Emergency Medicine; PCP Physician Assistant; Visit Provider Emergency Medicine
DX: I25.110 Atherosclerotic heart disease of native coronary artery with unstable angina pectoris (principal); Z82.49 Family history of ischemic heart disease and other diseases of the circulatory system; I11.0 Hypertensive heart disease with heart failure; I50.30 Unspecified diastolic (congestive) heart failure; G47.33 Obstructive sleep apnea (adult) (pediatric); Z79.899 Other long term (current) drug therapy; F17.290 Nicotine dependence, other tobacco product, uncomplicated
CPT/HCPCS: 36415; 71046; 74176; 76705; 80048; 80076; 82150; 83690; 84484; 85025; 86328; 93005; 93306; 93458; 99152; 99284; C1725; C1769; G0378; J1644; Q9967

== ENCOUNTER → 2020-01-31 15:09 | Outpatient (CLI) | payer MEDICAID, SELFPAY ==
[2020-01-31 19:56] LABS: Chloride 102 mmol/L (98-107); Potassium 4.7 mmoL/L (3.5-5.1); Sodium 139 mmol/L (136-145)
[2020-01-31 19:59] LABS: Anion Gap 12.7 mEq/L (5-15); Blood Urea Nitrogen 15 mg/dl (9-20); Calcium 9.2 mg/dl (8.4-10.2); Carbon Dioxide 29 mmol/L (22.0-30.0); Estimated Glomerular Filt Rate 94 ml/min (>60); GFR (African American) 114 ML/MIN (>60); Glucose 78 mg/dl (74-100)
== END ==
PROVIDERS: Visit Provider Physician Assistant
DX: I10 Essential (primary) hypertension (principal); R53.83 Other fatigue
CPT/HCPCS: 80048

== ENCOUNTER 2020-02-23 14:35 | Emergency (ER) | payer MEDICAID, SELFPAY ==
[2020-02-23 14:36] VITALS: BP 166/93; PULSE 76; RESP 16; TEMP 36.6; O2SAT 96; BMI 32.3
--- NOTE | 2020-02-23 14:39 | HMH.EDGENADL ---
ED Disposition Clinical Impression: Contusion of left foot Qualifiers: Encounter type: initial encounter Qualified Code(s): S90.32XA - Contusion of left foot, initial encounter Disposition: Home, Self-Care Condition on Discharge: Good Instructions: DI for Contusion, How To Perform RICE (Rest, Ice, Compress, Elevate) Additional Instructions: Roberth wrap, ice, elevation, ibuprofen for 3 to 4 days. Follow-up with orthopedics if not improving in 3 to 4 days. Additional instructions for EXTREMITY PAIN: Return to an emergency department immediately if you have uncontrollable pain, fever, loss of feeling or inability to move your injured extremity. Referrals: Deepika Giles PA [Primary Care Provider] - - Critical Care Critical Care Time: No Attestation: On , the high probability of a clinically significant, sudden or life threatening deterioration of the following system(s) required my full and direct attention, intervention and personal management. The time I documented below is in addition to time spent performing reported procedures but includes the following listed in this critical care notation. Medical Decision Making - Todd Inquiry Pt receiving controlled substance: No Vital Signs: 02/23/20 14:36 Temperature 98 F Temperature Source Oral Pulse Rate [Radial] 76 Respiratory Rate 16 Blood Pressure [Right Arm] 166/93 H Blood Pressure Mean [Right Arm] 117 02 Sat by Pulse Oximetry 96 Oxygen Delivery Method Room Air Orders (Tests/Meds): ORDERS Category Date Time Status Ankle XR -Right minimum 3 Views [XR ankle RT min 3V] Exams 02/23/20 14:44 Taken Stat Foot XR right minimum 3 views [XR foot RT min 3V] Stat Exams 02/23/20 14:44 Taken Tibia/fibula XR right 2 views [XR tibia fibula RT 2V] Exams 02/23/20 14:50 Taken Stat - Radiology Data #1 Image(s): Tib/Fib, Ankle, Foot/Toes Image Reviewed: Yes I reviewed the patient's radiology image Preliminary Findings: Normal/NAD Medical Decision Narrative: Patient refuses crutches and states he would like to work General Adult HPI - General Stated complaint: rt foot/leg pain Ao 02/23/20 Time Seen by Provider: 02/23/20 14:40 - History of Present Illness HPI narrative: Injured his right foot on 02/22/2020 at about 3 AM while at work. A pallet riley rolled into the lateral aspect of his right foot in the region of the fifth metatarsal. He has been walking on since then but has pain in that area and also says that the pain goes up his right leg all the way up to his buttock area with movement. He is using ice and ibuprofen. He says the child kicked the injured area of his foot prior to coming to the emergency room. - Related Data Home Medications Medication Instructions Recorded Confirmed Cetirizine HCl 10 mg PO DAILY 01/04/20 02/07/20 Fluticasone Propionate 2 spray INTRANASAL DAILY 01/04/20 02/07/20 Cholecalciferol (Vitamin D3) 50,000 unit PO DAILY 01/05/20 02/07/20 [Vitamin D3 50,000 unit Cap] Previous Rx's Medication Instructions Recorded furosemide 40 mg tablet 40 mg PO DAILY #90 tab 02/07/20 metoprolol succinate 50 mg 50 mg PO DAILY #90 tab 02/07/20 tablet,extended release 24 hr spironolactone 25 mg tablet 25 mg PO DAILY #90 tab 02/07/20 Allergies Allergy/AdvReac Type Severity Reaction Status Date / Time No Known Allergies Allergy Verified 02/07/20 10:48 [facility] History - Hepatitis A Screen Attestation statement:: This patient has been screened for Hepatitis A risk factors. I have reviewed the patient's past medical history: Yes Medical History: Reports:: Hypertension Denies:: Cancer, Diabetes Mellitus Type 1, Diabetes Mellitus Type 2, MRSA Other Medical History: Reports: Sinus Problems Laterality Cases: Bilateral: Tonsillectomy Other Surgeries: Yes: Cardiac Catheterization, Other Amputation: No Fractures: No Comment: RT Knee - Social History Smoking Status: Current every day smoker
[2020-02-23 14:43] VITALS: BMI 32.3
--- NOTE | 2020-02-23 14:44 | XR_ITS ---
PROCEDURE: XR ANKLE RT MIN 3V CLINICAL INDICATION: INJURY Posttraumatic pain COMPARISON: No exams were available for comparison FINDINGS: IMPRESSION: No acute findings. Dictated by: Vick Wolfe MD 02/23/2020 18:47 Vick Wolfe MD in [place] 02/23/2020 18:47
--- NOTE | 2020-02-23 14:44 | XR_ITS ---
PROCEDURE: XR FOOT RT MIN 3V CLINICAL INDICATION: INJURY Injury with pain COMPARISON: No exams were available for comparison FINDINGS: No fracture or dislocation. No lytic or blastic change. There is normal mineralization. The joint spaces are well-preserved. No significant degenerative/arthritic changes. No erosive changes evident. Other findings:None. IMPRESSION: No acute findings. Dictated by: Vick Wolfe MD 02/23/2020 18:45 Vick Wolfe MD in [place] 02/23/2020 18:45
--- NOTE | 2020-02-23 14:50 | XR_ITS ---
PROCEDURE: XR TIBIA FIBULA RT 2V CLINICAL INDICATION: injury Pain COMPARISON: No exams were available for comparison FINDINGS: No fracture or dislocation. No lytic or blastic change. There is normal mineralization. The joint spaces are well-preserved. No significant degenerative/arthritic changes. No erosive changes evident. Other findings:None. IMPRESSION: No acute findings. Dictated by: Vick Wolfe MD 02/23/2020 18:48 Vikc Wolfe MD in [place] 02/23/2020 18:48
[2020-02-23 15:25] VITALS: BP 135/74; PULSE 77; RESP 18; TEMP 36.6; O2SAT 98
== END 2020-02-23 15:27 | disposition home or self-care (01) ==
PROVIDERS: Emergency Provider Emergency Medicine; PCP Physician Assistant
DX: S90.32XA Contusion of left foot, initial encounter (principal); W22.8XXA Striking against or struck by other objects, initial encounter; Y92.69 Other specified industrial and construction area as the place of occurrence of the external cause; Y99.0 Civilian activity done for income or pay; I10 Essential (primary) hypertension; F17.290 Nicotine dependence, other tobacco product, uncomplicated
CPT/HCPCS: 73590; 73610; 73630; 99282

== ENCOUNTER 2020-02-25 13:33 | Emergency (ER) | payer MEDICAID, SELFPAY ==
[2020-02-25 13:51] VITALS: BP 136/93; PULSE 110; RESP 20; O2SAT 99; BMI 32.3
--- NOTE | 2020-02-25 14:08 | HMH.EDUTC ---
[facility] Disposition Clinical Impression: Viral upper respiratory illness, Encounter for laboratory testing for COVID-19 virus Disposition: Home, Self-Care Condition on Discharge: Good Instructions: Sore Throat, DI for Fever (Symptom) -- Adult, Preventing the Spread of Coronavirus Discharge Instructions Additional Instructions: *Monitor Temp, Over the counter Motrin or Tylenol as directed/as needed Tylenol every 4 hours and Motrin every 6 hours (as long as your family doctor has told you that you can take it) for fever or pain. and straight to ER if unable to lower temp less than 101.0 after medication given *Warm salt water gargles may help to soothe the throat *Throat Lozenges *Warm fluids like tea with honey may help to soothe the throat *Sleep elevated *Humidifier/Vaporizer *Flonase 2 sprays in each nostril daily but be aware that it may take 2-3 days before you notice improvement Follow up IMMEDIATELY for new or worsening symptoms or no Noticeable improvement over the next 48-72 hours. 911 for difficulty breathing or swallowing You was tested for today for COVID19 your test result should be back in the next 24-48 hours, you may call to the [facility] later today or tomorrow to see if your test results are back and the result [phone] [facility] hours are 9am-9pm You was given a handout with instructions for Self Quarantine and Self isolation for while you wait on test results and what to do if they are positive If you are positive the Health Dept will be contacting you also Prescriptions: Benzonatate [Tessalon Perle 100mg Cap*] 100 mg PO TID PRN #15 cap PRN Reason: Cough [facility]: [id number] Referrals: Deepika Giles PA [Primary Care Provider] - Forms: Work/School Release Time of Disposition: 14:12 Medical Decision Making - Todd Inquiry Pt receiving controlled substance: No Todd was queried for this patient: No Vital Signs: 02/25/20 13:51 Pulse Rate [Radial] 110 H Respiratory Rate 20 Blood Pressure [Right Arm] 136/93 H Blood Pressure Mean [Right Arm] 107 Blood Pressure Source [Right Arm] Automatic Cuff Blood Pressure Position [Right Arm] Sitting 02 Sat by Pulse Oximetry 99 Oxygen Delivery Method Room Air - Lab Data Lab results reviewed: Yes: I reviewed the patient's lab results. Orders (Tests/Meds): ORDERS Category Date Time Status Covid-19 Nasal PCR ([facility]) Routine Lab 02/25/20 13:44 Received [facility] HPI - General Stated complaint: headache, weak, cough Time Seen by Provider: 02/25/20 14:08 Mode of Arrival: Ambulatory Source of Information: Patient Limitations: No Limitations Description of Symptoms (Recalled from Triage Doc. 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 and worried that he may have flu or COVID - Related Data Home Medications Medication Instructions Recorded Confirmed Cetirizine HCl 10 mg PO DAILY 01/04/20 02/07/20 Fluticasone Propionate 2 spray INTRANASAL DAILY 01/04/20 02/07/20 Cholecalciferol (Vitamin D3) 50,000 unit PO DAILY 01/05/20 02/07/20 [Vitamin D3 50,000 unit Cap] Previous Rx's Medication Instructions Recorded furosemide 40 mg tablet 40 mg PO DAILY #90 tab 02/07/20 metoprolol succinate 50 mg 50 mg PO DAILY #90 tab 02/07/20 tablet,extended release 24 hr spironolactone 25 mg tablet 25 mg PO DAILY #90 tab 02/07/20 Benzonatate [Tessalon Perle 100mg 100 mg PO TID PRN #15 cap 02/25/20 Cap*] Allergies Allergy/AdvReac Type Severity Reaction Status Date / Time
[2020-02-25 14:32] VITALS: BP 136/93; PULSE 110; RESP 20; TEMP 36.6; O2SAT 99
[2020-02-25 21:33] LABS: UTC Influenza A Antigen Negative (Negative)
[2020-02-25 21:34] LABS: UTC Influenza B Antigen Negative (Negative)
== END 2020-02-25 14:33 | disposition home or self-care (01) ==
PROVIDERS: Emergency Provider Nurse Practitioner; PCP Physician Assistant
DX: U07.1 COVID-19 (principal); I10 Essential (primary) hypertension; F17.210 Nicotine dependence, cigarettes, uncomplicated
CPT/HCPCS: 87804; 99202; U0003

== ENCOUNTER → 2020-03-27 10:57 | Outpatient (CLI) | payer MEDICAID, SELFPAY | PROVIDERS: PCP Physician Assistant; Visit Provider Nurse Practitioner Family | DX: R07.2 Precordial pain (principal); R00.2 Palpitations; I10 Essential (primary) hypertension; G47.33 Obstructive sleep apnea (adult) (pediatric); Z87.891 Personal history of nicotine dependence | CPT/HCPCS: 93270 ==

== ENCOUNTER → 2020-05-08 07:54 | Outpatient (CLI) | payer MEDICAID, SELFPAY ==
[2020-05-08 08:56] LABS: Chloride 101 mmol/L (98-107)
[2020-05-08 08:57] LABS: Potassium 4.5 mmoL/L (3.5-5.1); Sodium 139 mmol/L (136-145)
[2020-05-08 09:00] LABS: Anion Gap 10.5 mEq/L (5-15); Blood Urea Nitrogen 15 mg/dl (9-20); Calcium 9.6 mg/dl (8.4-10.2); Carbon Dioxide 32 mmol/L (22.0-30.0); Estimated Glomerular Filt Rate 94 ml/min (>60); GFR (African American) 114 ML/MIN (>60); Glucose 116 mg/dl (74-100)
== END ==
PROVIDERS: Visit Provider Nurse Practitioner Family
DX: R06.00 Dyspnea, unspecified (principal); R07.9 Chest pain, unspecified; I51.89 Other ill-defined heart diseases
CPT/HCPCS: 36415; 80048

== ENCOUNTER → 2020-09-26 08:07 | Outpatient (CLI) | payer MEDICAID, SELFPAY ==
[2020-09-26 08:33] LABS: Basophils # 0.1 K/mm3 (0-0.2); Basophils % 0.9 % (0.1-2.0); Eosinophils # 0.3 K/mm3 (0.0-0.4); Eosinophils % 5.2 % (0.1-12.0); Hematocrit 40.4 % (42.0-52.0); Hemoglobin 14.2 g/dL (14.1-18.0); Lymphocytes # 1.6 K/mm3 (0.7-4.5); Lymphocytes % 29.7 % (10-50); Mean Corpuscular HGB Conc 35.1 g/dL (31.8-35.4); Mean Corpuscular Hemoglobin 31.2 pg (27.0-31.2); Mean Platelet Volume 7.4 fl (7.4-10.4); Monocytes # 0.4 K/mm3 (0.1-1.0); Monocytes % 6.8 % (1.7-9.3); Neutrophils # 3.1 K/mm3 (1.8-7.8); Neutrophils % 57.4 % (37.0-80.0); Platelet Count 226 K/mm3 (142-424); Red Blood Count 4.54 M/mm3 (4.60-6.20); Red Cell Distribution Width 12.7 % (11.5-17.5); White Blood Count 5.4 K/mm3 (4.8-10.8)
--- NOTE | 2020-09-26 08:35 | MR_ITS ---
PROCEDURE: MR HEAD/BRAIN WO/W CON CLINICAL INDICATION: facial nerve paralysis Right-sided facial nerve paralysis COMPARISON: No exams were available for comparison TECHNIQUE: Routine multiplanar multi echo sequences are performed without and with gadolinium enhancement. FINDINGS: No midline shift, mass effect, intracranial hemorrhage, or hydrocephalus. No evidence of restricted diffusion. No acute infarction. The cerebellopontine angles, cerebellum, midbrain and brainstem have an unremarkable appearance. Incidental note made of a few small perivascular dilated spaces in the medial aspect of the temporal lobes. No abnormal white matter signal intensity. There is a partial empty sella as a normal variant. The optic chiasm, corpus callosum, and craniocervical junction have an unremarkable appearance. The hippocampal gyri are unremarkable in the temporal horns are symmetric. No enhancing lesions are evident. There is fluid present in the right mastoid sinus. There is mild mucosal thickening of the maxillary sinuses with a 2 cm retention cyst in the floor the left maxillary sinus. Moderate mucosal thickening also involves the ethmoid sinuses and there is mild mucosal thickening of the right frontal sinus IMPRESSION: 1. No acute intracranial findings. Essentially negative MRI of the brain without and with contrast 2. Right mastoid and paranasal sinus disease. Dictated by: Vick Wolfe MD 09/26/2020 11:18 Vick Wolfe MD in [place] 09/26/2020 11:18
[2020-09-26 08:36] LABS: Potassium 3.8 mmoL/L (3.5-5.1); Sodium 139 mmol/L (136-145)
[2020-09-26 08:37] LABS: Chloride 101 mmol/L (98-107)
[2020-09-26 08:38] LABS: Blood Urea Nitrogen 16 mg/dl (9-20); Estimated Glomerular Filt Rate 93 ml/min (>60); GFR (African American) 113 ML/MIN (>60)
[2020-09-26 08:39] LABS: Alanine Aminotransferase 14 U/L (12-78); Albumin Level 4.5 g/dl (3.5-5.0); Albumin/Globulin Ratio 1.7 (1.1-1.8); Alkaline Phosphatase 71 U/L (38-126); Anion Gap 11.8 mEq/L (5-15); Aspartate Amino Transferase 20 U/L (17-59); Bilirubin,Total 0.5 mg/dl (0.2-1.3); Calcium 9.3 mg/dl (8.4-10.2); Carbon Dioxide 30 mmol/L (22.0-30.0); Globulin 2.7 g/dL (1.3-3.2); Glucose 108 mg/dl (74-100); Total Protein,Serum 7.2 g/dl (6.3-8.2)
[2020-09-26 09:10] LABS: Thyroid Stimulating Hormone 1.51 uIU/mL (0.465-4.68)
[2020-09-26 10:48] LABS: C-Reactive Protein 0.7 mg/L (0-4)
[2020-09-26 11:35] LABS: Vitamin B12 279 pg/mL (239-931)
[2020-09-26 14:34] LABS: Erythrocyte Sedimentation Rate 9 mm/hr (0-15)
[2020-09-27 07:30] LABS: HIV Screen 4th Generation wRfx Non Reactive (Non Reactive)
[2020-09-27 10:26] LABS: Hep A Ab, IgM Negative (Negative); Hepatitis B Core Antibody IgM Negative (Negative); Hepatitis B Surface Antigen Negative (Negative); Hepatitis C Antibody <0.1 s/co ratio (0.0-0.9)
[2020-09-27 14:39] LABS: Anti-Centromere B Antibodies <0.2 AI (0.0-0.9); Anti-DNA (DS) Ab Qn <1 IU/mL (0-9); Anti-Jo-1 <0.2 AI (0.0-0.9); Anti-Smith Antibody <0.2 AI (0.0-0.9); Antichromatin Antibodies <0.2 AI (0.0-0.9); Antiscleroderma-70 Antibodies <0.2 AI (0.0-0.9); RNP Antibodies 0.6 AI (0.0-0.9); Sjogren's Anti-SS-A <0.2 AI (0.0-0.9); Sjogren's Anti-SS-B <0.2 AI (0.0-0.9)
== END ==
PROVIDERS: PCP Physician Assistant; Visit Provider Physician Assistant
DX: G51.0 Bell's palsy (principal); Z79.899 Other long term (current) drug therapy; Z11.4 Encounter for screening for human immunodeficiency virus [HIV]
CPT/HCPCS: 36415; 70553; 80053; 80074; 82607; 84443; 85025; 85651; 86140; 86225; 86235; 86618; 86703; A9576; G0432

== ENCOUNTER → 2020-10-08 15:56 | Outpatient (CLI) | payer MEDICAID, SELFPAY ==
[2020-10-10 11:38] LABS: Rapid Plasma Reagin Ab Titer Non Reactive (NonRea<1:1)
[2020-10-10 16:39] LABS: Angiotensin Converting Enzyme 20 U/L (14-82)
== END ==
PROVIDERS: Visit Provider Specialist
DX: G51.0 Bell's palsy (principal)
CPT/HCPCS: 36415; 82164; 86592

== ENCOUNTER → 2020-10-17 07:15 | Outpatient (CLI) | payer MEDICAID, SELFPAY ==
--- NOTE | 2020-10-17 07:15 | CT_ITS ---
PROCEDURE: CT HEAD/BRAIN WO CON CLINICAL INDICATION: mastoiditis History of Parham's palsy and pain behind right ear COMPARISON: MRI scan the brain with contrast 09/26/2020 TECHNIQUE: Axial images obtained. All CT scans at the facility use one or more dose reduction, viz: automated exposure control, ma/kV adjustment per patient size (including targeted exams where dose is matched to indication, i.e. head), or iterative reconstruction technique. FINDINGS: No midline shift, mass effect, intracranial hemorrhage, hydrocephalus, or extra-axial fluid collection is evident. There has been interval clearing of the fluid in the right mastoid since previous MRI exam. The left mastoids are clear. The calvarium has an unremarkable appearance. There is moderate fluid within the ethmoid sinuses bilaterally. The visualized portions of the maxillary sinuses are clear, frontals and sphenoid sinus are clear.. IMPRESSION: Persistent ethmoid sinusitis, interval clearing of the inflammatory changes right mastoids, no acute intracranial pathology noted Dictated by: Dr. Francisco Higginbotham MD 10/17/2020 07:56 Dr. Francisco Higginbotham MD in [place] 10/17/2020 07:56
== END ==
PROVIDERS: PCP Physician Assistant; Visit Provider Specialist
DX: H70.11 Chronic mastoiditis, right ear (principal); R90.89 Other abnormal findings on diagnostic imaging of central nervous system
CPT/HCPCS: 70450

== ENCOUNTER → 2021-08-08 08:16 | Outpatient (CLI) | payer MEDICAID, SELFPAY | PROVIDERS: Visit Provider Nurse Practitioner | DX: R94.30 Abnormal result of cardiovascular function study, unspecified (principal) ==

== ENCOUNTER → 2023-02-12 08:30 | Outpatient (CLI) | payer MEDICAID, SELFPAY ==
[2023-02-12 10:17] LABS: Anion Gap 14.7 mEq/L (5-15); Blood Urea Nitrogen 18 mg/dl (9-20); Calcium 9.3 mg/dl (8.4-10.2); Carbon Dioxide 28 mmol/L (22.0-30.0); Chloride 101 mmol/L (98-107); Estimated Glomerular Filt Rate 93 ml/min (>60); GFR (African American) 112 ML/MIN (>60); Glucose 97 mg/dl (74-100); Potassium 3.7 mmoL/L (3.5-5.1); Sodium 140 mmol/L (136-145)
== END ==
PROVIDERS: PCP Physician Assistant; Visit Provider Physician Assistant
DX: R94.30 Abnormal result of cardiovascular function study, unspecified; I11.9 Hypertensive heart disease without heart failure
CPT/HCPCS: 36415; 80048

== ENCOUNTER 2023-06-15 07:52 | Outpatient (CLI) | payer BC, SELFPAY ==
--- NOTE | 2023-06-15 07:53 | CA_ITS ---
APPROVED REPORT EXAM: Comprehensive 2D, Doppler, and color-flow Echocardiogram Spear Fisher: Genevieve Levin RVT Ht: 6 ft 1 in Wt: 258lbs BSA: 2.40 BP: 152/88 mmHg Indications: CP,DIETER,SMOKER,FATIGUE,HTN,EDEMA,DD 2D Dimensions LA Volume 46.30 mL LA Volume Index 19.29 mL/m2 (M/F) 16-34 M-Mode Dimensions RVDd 2.82 cm (0.9-2.6) LA Diam 3.77 cm (1.9-4.0) LVDd 4.99 cm (3.5-5.7) LVDs 3.10 cm (3.5-5.7) IVSd 0.93 cm (0.6-1.1) PWd 0.40 cm (0.6-1.1) EF (Teich) 67.80% FS 37.90% EDV (Teich) 117.70 mL TAPSE 2.50 (<1.7) ESV (Teich) 37.90 mL LV Diastology E Decel Time 150 (160-240 msec) E/A Ratio 2.1 Aortic Valve CLIFFORD Index 1.22 cm2/m2 AoV Peak Tulio. 120.0 (50-130 cm/s) AO Peak GR. 5.70 mmHg AO Mean GR. 3.80 (<5 mmHg) AO VTI 24.0 (18-25 cm) CLIFFORD (VTI) 3.00 (2.5-4.5 cm2) Mitral Valve MV E Max Tulio. 79.0 (40-130 cm/s) MV A Velocity 38.0 (40-130 cm/s) E/A Ratio 2.12 MV PHT 44.0 ms Pulmonary Valve PV Peak Velocity 74.0 (50-150 cm/s) Left Ventricle The left ventricle is normal size. The left ventricular systolic function is normal. The left ventricular ejection fraction is within the normal range. There is normal left ventricular wall thickness. There is normal LV segmental wall motion. The left ventricular diastolic function is normal. LVEF is 55%. Right Ventricle The right ventricle is normal size. The right ventricular systolic function is normal. Atria The left atrium size is normal. The right atrium size is normal. There is no Doppler evidence of interatrial shunt. Aortic Valve The aortic valve opens well. There is no aortic valvular stenosis. No aortic regurgitation is present. Mitral Valve The mitral valve is normal in structure. No evidence of mitral valve stenosis. There is no mitral valve regurgitation noted. Tricuspid Valve The tricuspid valve leaflets are thin and pliable. Trace tricuspid regurgitation. There is insufficient TR jet to estimate RVSP. Pulmonic Valve The pulmonary valve is normal in structure. Trace pulmonic regurgitation. Great Vessels The aortic root is normal in size. The ascending aorta is normal in size. IVC is normal in size and collapses >50% with inspiration. Pericardium There is no pericardial effusion. Other Information Study Quality: Adequate Conclusion Normal biventricular systolic function. No significant valvular stenosis or regurgitation. Electronically signed by : Cheyenne Betancourt MD 06/16/2023 00:00:38
== END 2023-06-15 23:59 ==
LOC: RT 07:53
PROVIDERS: PCP Physician Assistant; Visit Provider Nurse Practitioner Family
DX: I11.9 Hypertensive heart disease without heart failure (principal); R06.00 Dyspnea, unspecified; R07.89 Other chest pain; R00.2 Palpitations; R94.30 Abnormal result of cardiovascular function study, unspecified; G47.33 Obstructive sleep apnea (adult) (pediatric); F17.290 Nicotine dependence, other tobacco product, uncomplicated
CPT/HCPCS: 93306

== ENCOUNTER 2023-06-17 09:19 | Outpatient (CLI) | payer BC, SELFPAY ==
--- NOTE | 2023-06-17 09:21 | XR_ITS ---
FINAL REPORT CLINICAL HISTORY: Precordial chest pain COMPARISON: 01/04/2020 FINDINGS: Two views of the chest were obtained. The heart size and pulmonary vascularity are within normal limits. The mediastinum is normal. No acute pulmonary abnormality is identified. There is no pneumothorax. The bony thorax is intact. IMPRESSION: No active cardiopulmonary disease. Reviewed, Interpreted and Dictated by Mikey Barreto III, MD Transcribed by Malou Almanzar Authenticated and [facility]
[2023-06-17 13:13] LABS: Chloride 102 mmol/L (98-107); Potassium 4.2 mmoL/L (3.5-5.1); Sodium 136 mmol/L (136-145)
[2023-06-17 13:16] LABS: Blood Urea Nitrogen 13 mg/dl (9-20); Estimated Glomerular Filt Rate 106 ml/min (>60); GFR (African American) 128 ML/MIN (>60)
[2023-06-17 13:17] LABS: Anion Gap 9.2 mEq/L (5-15); Calcium 9.2 mg/dl (8.4-10.2); Carbon Dioxide 29 mmol/L (22.0-30.0); Glucose 96 mg/dl (74-100)
== END 2023-06-17 23:59 ==
PROVIDERS: PCP Physician Assistant; Visit Provider Nurse Practitioner Family
DX: R07.89 Other chest pain (principal); R06.02 Shortness of breath; R94.30 Abnormal result of cardiovascular function study, unspecified; I51.89 Other ill-defined heart diseases
CPT/HCPCS: 36415; 71046; 80048